=== PATIENT | male | born 1955 | race Caucasian/White ===

== ENCOUNTER → 2017-09-21 | Outpatient (CLI) | payer OTHER ==
[2017-09-21 12:57] LABS: BASO ABS # 0.06 K/uL (0-0.2); EOS % 6.2 %; EOS ABS # 0.36 K/uL (0-0.5); HEMATOCRIT 36.5 % (42-52); HEMOGLOBIN 12.2 g/dL (14.0-18.0); IG# 0.01 K/uL (0.00-0.02); LYMPH % 31.8 %; LYMPH ABS # 1.85 K/uL (1.2-3.4); MEAN CELL VOLUME 104.3 fL (80-100); MEAN CORPUSCULAR HEMOGLOBIN 34.9 pg (25-34); MEAN CORPUSCULAR HGB CONC 33.4 g/dl (32-36); MEAN PLATELET VOLUME 11.6 fL (7.4-10.4); MONO % 8.4 %; MONO ABS # 0.49 K/uL (0.11-0.59); NEUT % 52.4 %; NEUT ABS # 3.05 K/uL (1.4-6.5); PLATELET COUNT 173 K/uL (130-400); RED CELL DISTRIBUTION WIDTH CV 15.1 % (11.5-14.5); RED CELL DISTRIBUTION WIDTH SD 57.5 fL (36.4-46.3); RETIC COUNT % 1.2 % (0.5-2.0); WHITE BLOOD COUNT 5.82 K/uL (4.8-10.8)
[2017-09-21 13:57] LABS: ALKALINE PHOSPHATASE 59 U/L (45-117); ALT/SGPT 75 U/L (12-78); AST/SGOT 56 U/L (15-37); BLOOD UREA NITROGEN 22 mg/dl (7-18); CALCIUM 9.2 mg/dl (8.5-10.1); CARBON DIOXIDE 25 mmol/L (21-32); CREATININE 1.48 mg/dl (0.60-1.40); GLUCOSE 100 mg/dl (70-99); POTASSIUM 3.7 mmol/L (3.5-5.1); SODIUM 142 mmol/L (136-145); TOTAL PROTEIN 7.4 gm/dl (6.4-8.2); TRANSFERRIN 217 mg/dl (200-360)
== END | disposition home or self-care (01) ==
LOC: C.LABBFT 07:25
PROVIDERS: ATTEND Internal Medicine
DX: E03.9 Hypothyroidism, unspecified (principal); D64.9 Anemia, unspecified; R79.89 Other specified abnormal findings of blood chemistry